=== PATIENT | male | born 1980 | race Caucasian/White ===

== ENCOUNTER 2022-06-04 13:09 | Emergency (ER) | payer BC ==
[~2022-06-04] VITALS: Ht 182.9 cm; Wt 90.9 kg
[2022-06-04 13:21] VITALS: BP 129/73
[2022-06-04] MEDS ORDERED: LIDOcaine 1% 30ml preserv. free vial IJ ONE (14:40)
== END 2022-06-04 15:09 | disposition home or self-care (01) ==
LOC: ER 13:10
DX: S71.112A Laceration without foreign body, left thigh, initial encounter (principal); Z88.0 Allergy status to penicillin; Z79.899 Other long term (current) drug therapy; W26.8XXA Contact with other sharp object(s), not elsewhere classified, initial encounter; Y93.89 Activity, other specified; Y92.89 Other specified places as the place of occurrence of the external cause; Y99.8 Other external cause status
CPT/HCPCS: 12002; 99282; A6258; A6449

== ENCOUNTER 2023-07-13 18:38 | Emergency (ER) | payer BC ==
[~2023-07-13] VITALS: Ht 182.9 cm; Wt 85.8 kg
[2023-07-13 18:44] VITALS: BP 131/85; PULSE 99; RESP 18; TEMP 98.6; O2SAT 98
[2023-07-13] MEDS ORDERED: NAPR-1154 PO (20:00)
[2023-07-13] MEDS ORDERED: HYDR-3965 PO (20:00)
== END 2023-07-13 20:09 | disposition home or self-care (01) ==
LOC: ER 18:41
DX: S52.502A Unspecified fracture of the lower end of left radius, initial encounter for closed fracture (principal); S52.612A Displaced fracture of left ulna styloid process, initial encounter for closed fracture; Z88.0 Allergy status to penicillin; V29.99XA Rider (driver) (passenger) of other motorcycle injured in unspecified traffic accident, initial encounter; Y93.89 Activity, other specified; Y92.89 Other specified places as the place of occurrence of the external cause; Y99.8 Other external cause status
CPT/HCPCS: 29260; 73110; 73130; 99284